=== PATIENT | female | born 1930 | race Caucasian/White ===

== ENCOUNTER 2020-08-03 15:11 | Emergency (ER) | payer OTHER ==
[2020-08-03] MEDS ORDERED: FENTANYL CITR 100 MCG/2 ML ONE (16:17)
[2020-08-03 16:22] LABS: Potassium 4.6 mmol/L (3.5-5.1)
[2020-08-03 16:23] LABS: Absolute Lymphocytes (CBC) 0.9 K/uL (0.7-4.9); Basophils % 0.7 % (0-1.3); Hematocrit 37.7 % (36.0-45.0); Lymphocytes % 9.7 % (15.3-44.8); MPV 7.9 fL (7.6-11.3); RBC Red Blood Cell Count 3.85 M/uL (3.86-4.86)
[2020-08-03] MEDS ORDERED: TRAMADOL HCL 50 MG TAB ONE (16:25)
--- NOTE | 2020-08-03 17:13 | RAD REPORT ---
EXAM DESCRIPTION: CT - Head C Spine Shoaib Fox - 08/03/2020 4:47 pm CLINICAL HISTORY: Trauma, head and neck injury. Chest, abdomen and pelvis pain. fall COMPARISON: None TECHNIQUE: CT head without contrast. CT cervical spine without contrast with coronal and sagittal reformatted images. CT chest, abdomen and pelvis with IV contrast (approximately 100 mL nonionic IV contrast) with paul l and sagittal reformatted images of the spine. All CT scans are performed using dose optimization technique as appropriate and may include automated exposure control or mA/KV adjustment according to patient size. FINDINGS: CT HEAD WITHOUT CONTRAST: No intracranial hemorrhage, hydrocephalus or extra-axial fluid collection. Mild brain atrophy. No are as of brain edema or midline shift. The paranasal sinuses and mastoids are clear. The calvarium is intact. CT CERVICAL SPINE WITHOUT CONTRAST: No fracture or subluxation. Mild lower cervical degenerative changes. The prevertebral soft tissues a re normal in thickness. CT CHEST, ABDOMEN, PELVIS WITH CONTRAST: The lungs are mildly emphysematous.Moderate axial hiatal hernia.No pneumothorax or pericardial/pleura l fluid. No evidence of intra-abdominal visceral injury, free fluid or free air. Prominent sigmoid diverticulo sis coli is present without diverticulitis. Small ventral hernia is present along the lower left aspe ct of the abdomen. Anterior lateral left second rib demonstrates hairline fracture. Mildly displaced left posterior nint h, tenth, eleventh rib fracture. Left tenth, eleventh and twelfth ribs also likely demonstrate fractu re near the costovertebral junction. L1, L2, L3 left transverse process demonstrate minimally displaced fracture. IMPRESSION: Multiple left-sided rib fractures are seen as detailed above without pneumothorax. L1-3 left transverse process fractures. No central canal compromise.
--- NOTE | 2020-08-03 17:57 | ER ---
Nurse's Notes [facility] Name: Emelyn Luu Age: 89 yrs Sex: Female : 1930 Arrival Date: 08/03/2020 Time: 15:15 Bed 27 Private MD: Diagnosis: Fall on same level from slipping, tripping and stumbling;Multiple fractures of ribs, left side Presentation: 08/03 15:26 Chief complaint: Patient states: Missed a step and fell 1 - 2 hrs [employer]. Reports pain on ca1 the L side from L ribs to L hip. Denies LOC. Denies hitting head. Coronavirus screen: Client denies travel out of the [place] in the last 14 days. At this time, the client does not indicate any symptoms associated with coronavirus-19. Ebola Screen: Patient negative for fever greater than or equal to 101.5 degrees Fahrenheit, and additional compatible Ebola Virus Disease symptoms Patient denies exposure to infectious person. Patient denies travel to an Ebola-affected area in the 21 days before illness onset. No symptoms or risks identified at this time. Initial Sepsis Screen: Does the patient meet any 2 criteria? No. Patient's initial sepsis screen is negative. Does the patient have a suspected source of infection? No. Patient's initial sepsis screen is negative. Risk Assessment: Do you want to hurt yourself or someone else? Patient reports no desire to harm self or others. Onset of symptoms was August 03, 2020. 15:26 Method Of Arrival: Wheelchair ca1 15:26 Acuity: KEVIN 2 ca1 15:27 Care prior to arrival: None. Mechanism of Injury: Fall from standing position. Trauma iw event details: Injury occurred in the [facility]. Trauma Activation: Not Applicable Physician: ED Physician; Name: ; Notified At: ; Arrived At: Physician: General Surgeon; Name: ; Notified At: ; Arrived At: Physician: Radiology; Name: ; Notified At: ; Arrived At: Physician: Respiratory; Name: ; Notified At: ; Arrived At: Physician: Lab; Name: ; Notified At: ; Arrived At: Historical: - Allergies: 15:33 unknown pain medication; ca1 - Home Meds: 15:33 Plavix 75 mg Oral tab 1 tab once daily [Active]; Simvastatin Oral [Active]; ca1 - PMHx: 15:33 Diabetes - IDDM; High Cholesterol; Hypertension; ca1 - PSHx: 15:33 back surgery; Hysterectomy; ca1 - Immunization history:: Adult Immunizations up to date. - Social history:: Smoking status: Patient denies any tobacco usage or history of. - Immunization history: Last tetanus immunization: unknown. Screenin:35 Nutritional screening: No deficits noted. Fall Risk None identified. iw 16:15 Abuse screen: Denies threats or abuse. Denies injuries from another. Tuberculosis iw screening: No symptoms or risk factors identified. Primary Survey: 15:26 Reassessment Airway Airway Patent Breathing/Chest Respiratory pattern Regular. iw 16:15 NO uncontrolled hemorrhage observed. A: The patient is alert. Airway: patent. iw Breathing/Chest: Respiratory pattern: regular. Circulation: Skin color: pink. Disability Alert. Exposure/Environment: All clothing and personal items were removed. Forensic evidence collection is not deemed to be indicated at this time. Items placed in patient belonging bag. Secondary Survey: 16:40 HEENT: No deficits noted. Head No injury/deformity Face No injury/deformity. iw Gastrointestinal: Abdomen is soft, flat. : No deficits noted. Musculoskeletal: Range of motion: intact in all extremities, Reports pain in left lateral anterior chest and left lateral posterior chest. Assessment: 16:14 General: Appears in no apparent distress. Behavior is calm, cooperative. Pain: iw Complains of pain in left lateral posterior chest and left lateral anterior chest. Pain: Complains of pain in left hip Neuro: Level of Consciousness is awake, alert, obeys commands, Oriented to person, place, time. Cardiovascular: Patient's skin is warm and dry. Respiratory: Respiratory effort is even, unlabored, Respiratory pattern is regular, symmetrical. Derm: Skin is intact, is fragile. Musculoskeletal: Range of motion: limited in left hip. 18:43 Reassessment: Patient appears in no apparent distress at this time. No changes from iw previously documented assessment. Patient is alert, oriented x 3, equal unlabored respirations, skin warm/dry/pink. waiting on transportation home. Vital Signs: 15:26 BP 175 / 66; Pulse 60; Resp 16 S; Temp 97.6(TE); Pulse Ox 99% on R/A; Weight 63.5 kg ca1 (R); Height 5 ft. 0 in. (152.40 cm) (R); Pain 9/10; 15:26 Body Mass Index 27.34 (63.50 kg, 152.40 cm) ca1 [place] Score: 17:16 Eye Response: spontaneous(4). Verbal Response: oriented(5). Motor Response: obeys iw commands(6). Total: 15. Trauma Score (Adult): 17:16 Eye Response: spontaneous(1); Verbal Response: oriented(1); Motor Response: obeys iw commands(2); Systolic BP: > 89 mm Hg(4); Respiratory Rate: 10 to 29 per min(4); [place] Score: 15; Trauma Score: 12 ED Course: 15:15 Patient arrived in ED. as 15:30 Triage completed. ca1 15:33 Arm band placed on right wrist. ca1 15:35 Patient has correct armband on for positive identification. iw 15:35 Thermoregulation: warm blanket given to patient. iw 15:40 Lourdes Luu RN is Primary Nurse. iw 15:46 Robert Ortiz PA is PHCP. cp 15:46 Robert López MD is Attending Physician. cp 16:15 Initial lab(s) drawn, by me, sent to lab. Inserted saline lock: 20 gauge in right iw antecubital area, using aseptic technique. Blood collected. Patient maintains SpO2 saturation greater than 95% on room air. 16:46 CT Traumagram (Head C Spine CAP W Con) In Process Unspecified. EDMS 18:55 No provider procedures requiring assistance completed. IV discontinued, intact, iw bleeding controlled, No redness/swelling at site. Pressure dressing applied. Administered Medications: 16:14 Not Given (Patient Refused): fentaNYL (PF) 25 mcg IVP once; RASS on ADMIN: Combtv4, iw Very Agttd3, Agttd2, Rstlss1, AlertClm0, Drwsy-1, Lt Sdtn-2, Mod Sdtn-3, Dp Sdtn-4, UnArsble-5 16:36 Drug: UltRAM 50 mg Route: PO; iw Outcome: 17:57 Discharge ordered by MD. cp 18:55 Discharge instructions given to patient, family, Instructed on discharge instructions, iw follow up and referral plans. medication usage, Demonstrated understanding of instructions, follow-up care, medications, Prescriptions given X 1. 18:56 Discharged to home via wheelchair, with family. iw 18:56 Condition: good 18:56 Patient's length of stay was extended due to staffing issues within the emergency department. 18:56 Patient left the ED. iw Signatures: Dispatcher [employer] Flor Brock Irene, RN RN iw Robert Ortiz PA PA cp Acob, Cheryl RN RN ca1
--- NOTE | 2020-08-03 17:57 | EDPHYS ---
Physician Documentation [facility] Name: Emelyn Luu Age: 89 yrs Sex: Female : 1930 Arrival Date: 08/03/2020 Time: 15:15 Bed 27 Private MD: ED Physician Robert López HPI: 08/03 16:00 This 89 yrs old Female presents to ER via Wheelchair with complaints of Fall cp Injury - rib/hip pain. 16:00 Details of fall: The patient fell from an upright position, while walking, and struck a cp concrete surface. 16:00 Onset: The symptoms/episode began/occurred just prior to arrival. Associated injuries: cp The patient sustained injury to the chest, specifically the left lateral posterior chest and left lateral anterior chest, pain with breathing, pain with movement, injury to the abdomen, specifically the posterior aspect of left lateral abdomen and anterior aspect of left lateral abdomen, tenderness, left hip, painful injury. Patient reports losing balance and falling. Landed on left side causing pain to left rib, left abdomen and left hip area. Historical: - Allergies: 15:33 unknown pain medication; ca1 - Home Meds: 15:33 Plavix 75 mg Oral tab 1 tab once daily [Active]; Simvastatin Oral [Active]; ca1 - PMHx: 15:33 Diabetes - IDDM; High Cholesterol; Hypertension; ca1 - PSHx: 15:33 back surgery; Hysterectomy; ca1 - Immunization history:: Adult Immunizations up to date. - Social history:: Smoking status: Patient denies any tobacco usage or history of. - Immunization history: Last tetanus immunization: unknown. ROS: 16:05 Constitutional: Negative for body aches, chills, fever, poor PO intake. cp 16:05 Eyes: Negative for injury, pain, redness, and discharge. cp 16:05 Neck: Negative for pain with movement, pain at rest, stiffness. 16:05 Cardiovascular: Positive for chest pain, of the left lateral rib area, Negative for edema, palpitations. 16:05 Respiratory: Negative for cough, shortness of breath, wheezing. 16:05 Abdomen/GI: Positive for abdominal pain, of the posterior aspect of left lateral abdomen and anterior aspect of left lateral abdomen, Negative for nausea, vomiting, and diarrhea. 16:05 Back: Negative for pain at rest, pain with movement. 16:05 Neuro: Negative for altered mental status, loss of consciousness, syncope, weakness. 16:05 All other systems are negative. Exam: 16:15 Constitutional: The patient appears in no acute distress, alert, awake, cp non-diaphoretic, non-toxic, well developed, well nourished. 16:15 Head/Face: Normocephalic, atraumatic. cp 16:15 Eyes: Periorbital structures: appear normal, Pupils: equal, round, and reactive to light and accomodation, Extraocular movements: intact throughout, Conjunctiva: normal, no exudate, no injection, Sclera: no appreciated abnormality, Lids and lashes: appear normal, bilaterally. 16:15 ENT: External ear(s): are unremarkable, Nose: is normal, Mouth: Lips: moist, Oral mucosa: moist, Posterior pharynx: Airway: no evidence of obstruction, patent. 16:15 Neck: C-spine: vertebral tenderness, is not appreciated, crepitus, is not appreciated. 16:15 Chest/axilla: Inspection: normal, Palpation: crepitus, is not appreciated, tenderness, cp that is moderate, of the left lower lateral posterior chest and left lower lateral anterior chest, that partially reproduces the patient's complaints. 16:15 Cardiovascular: Rate: normal, Rhythm: regular, Edema: is not appreciated, JVD: is not cp appreciated. 16:15 Respiratory: the patient does not display signs of respiratory distress, Respirations: normal, no use of accessory muscles, no retractions, labored breathing, is not present, Breath sounds: are clear throughout, no decreased breath sounds, no stridor, no wheezing. 16:15 Abdomen/GI: Inspection: abdomen appears normal, Bowel sounds: active, all quadrants, Palpation: soft, in all quadrants, mild abdominal tenderness, in the posterior aspect of left lateral abdomen and anterior aspect of left lateral abdomen, rebound tenderness, is not appreciated, involuntary guarding, is not appreciated. 16:15 Back: vertebral tenderness, is not appreciated. 16:15 Musculoskeletal/extremity: Exam is negative for decreased range of motion, deformity, injury, Extremities: all appear grossly normal, with no appreciated pain with palpation. 16:15 Neuro: Orientation: to person, place \T\ time. Mentation: is normal, Motor: moves all fours, strength is normal, Sensation: is normal. Vital Signs: 15:26 BP 175 / 66; Pulse 60; Resp 16 S; Temp 97.6(TE); Pulse Ox 99% on R/A; Weight 63.5 kg ca1 (R); Height 5 ft. 0 in. (152.40 cm) (R); Pain 9/10; 15:26 Body Mass Index 27.34 (63.50 kg, 152.40 cm) ca1 [place] Coma Score: 17:16 Eye Response: spontaneous(4). Verbal Response: oriented(5). Motor Response: obeys iw commands(6). Total: 15. Trauma Score (Adult): 17:16 Eye Response: spontaneous(1); Verbal Response: oriented(1); Motor Response: obeys iw commands(2); Systolic BP: > 89 mm Hg(4); Respiratory Rate: 10 to 29 per min(4); [place] Score: 15; Trauma Score: 12 MDM: 15:49 Patient medically screened. cp 16:00 Differential diagnosis: closed head injury, contusion, fracture, multiple trauma, cp syncope. 17:55 Data reviewed: vital signs, nurses notes, lab test result(s), radiologic studies, CT cp scan. 17:55 Counseling: I had a detailed discussion with the patient and/or guardian regarding: the cp historical points, exam findings, and any diagnostic results supporting the discharge/admit diagnosis, lab results, radiology results, to return to the emergency department if symptoms worsen or persist or if there are any questions or concerns that arise at home. Response to treatment: VSS. Pain improved with meds and no signs of respiratory distress. Incentive spirometry given and will discharge to home for continued monitoring. 08/03 15:47 Order name: Basic Metabolic Panel; Complete Time: 17:30 cp 08/03 17:30 Interpretation: Normal except: GLUC 166; BUN 27; GFR 40. cp 08/03 15:47 Order name: CBC with Diff; Complete Time: 17:30 cp 08/03 15:47 Order name: Type And Screen; Complete Time: 17:30 cp 08/03 15:49 Order name: CT Traumagram (Head C Spine CAP W Con); Complete Time: 17:30 cp 08/03 17:31 Order name: INCENTIVE SPIROMETRY cp 08/03 15:47 Order name: IV; Complete Time: 15:54 cp 08/03 15:47 Order name: Labs collected and sent; Complete Time: 16:14 cp Administered Medications: 16:14 Not Given (Patient Refused): fentaNYL (PF) 25 mcg IVP once; RASS on ADMIN: Combtv4, iw Very Agttd3, Agttd2, Rstlss1, AlertClm0, Drwsy-1, Lt Sdtn-2, Mod Sdtn-3, Dp Sdtn-4, UnArsble-5 16:36 Drug: UltRAM 50 mg Route: PO; iw Disposition: 08/04 01:24 Co-signature as Attending Physician, Robert López MD I agree with the assessment and oumou plan of care. Disposition: 08/03/20 17:57 Discharged to Home. Impression: Fall on same level from slipping, tripping and stumbling, Multiple fractures of ribs, left side. - Condition is Stable. - Discharge Instructions: Rib Fracture. - Prescriptions for Ultram 50 mg Oral Tablet - take 1 tablet by ORAL route every 8 hours As needed; 20 tablet. - Medication Reconciliation Form, Thank You Letter, Antibiotic Education, Prescription Opioid Use form. - Follow up: Private Physician; When: 2 - 3 days; Reason: Recheck today's complaints. - Problem is new. - Symptoms have improved. Signatures: Dispatcher [employer] EDRobert Latif MD MD cha Williams, Irene, RN RN Robert Ortiz PA PA cp Acob, Cheryl, RN RN ca1 Corrections: (The following items were deleted from the chart) 08/03 16:06 16:06 This 89 yrs old Female presents to ER via Wheelchair with complaints of cp Fall Injury - rib/hip pain. cp 18:56 17:57 08/03/2020 17:57 Discharged to Home. Impression: Fall on same level from iw slipping, tripping and stumbling; Multiple fractures of ribs, left side. Condition is Stable. Forms are Medication Reconciliation Form, Thank You Letter, Antibiotic Education, Prescription Opioid Use. Follow up: Private Physician; When: 2 - 3 days; Reason: Recheck today's complaints. Problem is new. Symptoms have improved. cp
[2020-08-03 19:24] VITALS: BP 175/66; TEMP 97.6; O2SAT 99
== END 2020-08-03 18:56 | disposition home or self-care (01) ==
LOC: ER 15:11
DX: S22.42XA Multiple fractures of ribs, left side, initial encounter for closed fracture (principal); W18.39XA Other fall on same level, initial encounter; Y93.01 Activity, walking, marching and hiking; Y92.9 Unspecified place or not applicable; I10 Essential (primary) hypertension; E11.9 Type 2 diabetes mellitus without complications; E78.00 Pure hypercholesterolemia, unspecified; Z79.01 Long term (current) use of anticoagulants; Z88.6 Allergy status to analgesic agent
CPT/HCPCS: 85025; 80048; 36415; 86900; 86850; 86901; 70450; 72125; 71260; 74177; 99284; Q9967; J3010

== ENCOUNTER 2020-10-26 11:20 | Inpatient (IN) | payer OTHER ==
[2020-10-26 12:46] LABS: Absolute Lymphocytes (CBC) 0.4 K/uL (0.7-4.9); Basophils % 0.6 % (0-1.3); Hematocrit 34.5 % (36.0-45.0); Lymphocytes % 8.8 % (15.3-44.8); MPV 8.1 fL (7.6-11.3); RBC Red Blood Cell Count 3.44 M/uL (3.86-4.86)
--- NOTE | 2020-10-26 12:59 | RAD REPORT ---
EXAM DESCRIPTION: RAD - Chest Single View - 10/26/2020 12:18 pm CLINICAL HISTORY: Cough;Dyspnea;Fever COMPARISON: None TECHNIQUE: AP portable chest image was obtained 10/26/2020 12:18 pm . FINDINGS: Lung volumes are low. Extensive interstitial opacification is present worse at the right b ase and in the right upper lobe. No dense mass or consolidations seen. Baseline for the patient is un known. Heart size is normal. Vasculature is mildly prominent. No pneumothorax. Small right pleural effusion is suspected. No acute bony abnormality seen. No acute aortic findings suspected. IMPRESSION: Extensive interstitial opacification worse in the right lung field with shallow inspirat ion. Baseline for the patient is unknown. Mild to moderate degrees of interstitial edema or infiltrate cou ld easily be acute head masked by a baseline fibrotic pattern.
[2020-10-26] MEDS ORDERED: NA CHLORIDE 0.9% 500 ML ONE (13:15)
[2020-10-26 13:16] LABS: Potassium 3.8 mmol/L (3.5-5.1); Troponin (Emerg Dept Use Only) 0.03 ng/mL (0.0-0.045)
[2020-10-26] MEDS ORDERED: CEFTRIAXONE/SWI 1gm 1 GM/10 ML SYR ONE (13:50)
[2020-10-26] MEDS ORDERED: AZITHROMYCIN IV 500 MG in NA CHLORIDE 0.9% 250 ML IVPB ONE (14:00)
[2020-10-26 15:04] LABS: Urine Blood 2+ (Negative); Urine Glucose Negative (Negative); Urine Protein Trace (Negative)
--- NOTE | 2020-10-26 15:08 | ER ---
Nurse's Notes [facility] [place] Name: Emelyn Luu Age: 89 yrs Sex: Female : 1930 Arrival Date: 10/26/2020 Time: 11:50 Bed 19 Private MD: Diagnosis: Pneumonia, unspecified organism;Urinary tract infection, site not specified Presentation: 10/26 11:51 Chief complaint: Patient states: Weakness, cough, fever, SOB since Wednesday. Fever ll1 started today. Chief complaint: EMS states: Initial O2 sat 83% RA, temp 99.5, BP 197/88, HR 60. Given 700 ml NS bolus in route. Tylenol 1 gm PO and nebulizer TX given in route. Coronavirus screen: Client denies travel out of the [place] in the last 14 days. congestion, cough unrelated to allergies, difficulty breathing, fever, shortness of breath, Client presents with at least one sign or symptom that may indicate coronavirus-19. Standard/surgical mask placed on the client. Ebola Screen: Patient denies travel to an Ebola-affected area in the 21 days before illness onset. Risk Assessment: Do you want to hurt yourself or someone else? Patient reports no desire to harm self or others. Onset of symptoms was October 21, 2020. 11:51 Method Of Arrival: EMS ll1 11:51 Acuity: KEVIN 3 ll1 12:00 Initial Sepsis Screen: Does the patient meet any 2 criteria? No. Patient's initial rb3 sepsis screen is negative. Does the patient have a suspected source of infection? Yes: Productive cough/pneumonia. Triage Assessment: 11:55 Pain: Denies pain. rb3 Historical: - Allergies: 11:51 unknown pain medication; ll1 - PMHx: 11:51 Diabetes - IDDM; High Cholesterol; Hypertension; ll1 - PSHx: 11:51 back surgery; Hysterectomy; ll1 - Immunization history:: Client reports receiving the 2nd dose of the Covid vaccine, Flu vaccine is up to date. - Social history:: Smoking status: Patient denies any tobacco usage or history of. - Family history:: not pertinent. - Hospitalizations: : No recent hospitalization is reported. Screenin:55 Abuse screen: Denies threats or abuse. Nutritional screening: No deficits noted. rb3 Tuberculosis screening: No symptoms or risk factors identified. Fall Risk None identified. Assessment: 11:55 General: Appears in no apparent distress. Behavior is calm, cooperative, Reports fever rb3 for started today. Neuro: Level of Consciousness is awake, alert, obeys commands, Oriented to person, place, time, situation. Neuro: Reports weakness since Wednesday. Cardiovascular: Patient's skin is warm and dry. Respiratory: Reports shortness of breath cough that is Airway is patent Respiratory effort is even, unlabored, Respiratory pattern is regular, symmetrical. GI: No signs and/or symptoms were reported involving the gastrointestinal system. : No signs and/or symptoms were reported regarding the genitourinary system. 12:55 Reassessment: Patient appears in no apparent distress at this time. No changes from rb3 previously documented assessment. 13:44 Reassessment: Patient appears in no apparent distress at this time. Patient and/or rb3 family updated on plan of care and expected duration. Pain level reassessed. Patient is alert, oriented x 3, equal unlabored respirations, skin warm/dry/pink. 14:40 Reassessment: Patient appears in no apparent distress at this time. No changes from rb3 previously documented assessment. 15:40 Reassessment: Patient appears in no apparent distress at this time. Patient and/or rb3 family updated on plan of care and expected duration. Pain level reassessed. Patient is alert, oriented x 3, equal unlabored respirations, skin warm/dry/pink. Patient denies pain at this time. 16:35 Reassessment: Gave report to LEROY Shook. Information from the SBAR was given. All rb3 questions asked and answered. 16:39 Reassessment: Patient appears in no apparent distress at this time. No changes from rb3 previously documented assessment. 17:00 Reassessment: Patient appears in no apparent distress at this time. Patient and/or rb3 family updated on plan of care and expected duration. Pain level reassessed. Patient is alert, oriented x 3, equal unlabored respirations, skin warm/dry/pink. Patient denies pain at this time. Vital Signs: 11:51 Weight 65.77 kg; Height 5 ft. 0 in. (152.40 cm); ll1 12:00 BP 148 / 71; Pulse 78; Resp 19; Temp 99.4; Pulse Ox 95% on 4 lpm NC; rb3 12:30 BP 132 / 51; Pulse 99; Resp 24; Temp 99.4(O); Pulse Ox 85% on R/A; mh5 12:55 BP 170 / 85; Pulse 70; Resp 19; Pulse Ox 97% on 4 lpm NC; mh5 14:00 BP 157 / 57; Pulse 83; Resp 24; Pulse Ox 95% on 4 lpm NC; rb3 15:00 BP 140 / 65; Pulse 74; Resp 21; Pulse Ox 94% 4 lpm ; Pain 0/10; rb3 16:00 BP 164 / 82; Pulse 71; Resp 20; Pulse Ox 95% on 4 lpm NC; rb3 16:40 BP 149 / 64; Pulse 71; Resp 20; Temp 98.2; Pulse Ox 95% 4 lpm ; rb3 11:51 Body Mass Index 28.32 (65.77 kg, 152.40 cm) ll1 ED Course: 11:50 Patient arrived in ED. rn 11:50 Casey Li MD is Attending Physician. rn 11:50 Arm band placed on Patient placed in an exam room, on a stretcher. ll1 11:53 Triage completed. ll1 12:18 Chest Single View XRAY In Process Unspecified. EDMS 12:45 Initial lab(s) drawn, by me, sent to lab. First set of blood cultures drawn by me [facility] Second set of blood cultures drawn by ok, EKG done, by ED staff, reviewed by Casey Li MD COVID swab sent to lab. Flu and/or RSV swab sent to lab. Maintain EMS IV. Dressing intact. Good blood return noted. Site clean \T\ dry. 13:09 Blood Culture Sent. 5 13:09 Basic Metabolic Panel Sent. 5 13:10 Basic Metabolic Panel Sent. 5 13:10 Blood Culture Adult (2) Sent. 5 13:10 Lactate Sent. 5 13:10 Procalcitonin Sent. 5 13:11 Shannan Quintero, RN is Primary Nurse. rb3 13:11 Patient has correct armband on for positive identification. Placed in gown. Bed in low mh5 position. Call light in reach. Side rails up X2. Pillow given. library monitor on. Pulse ox on. NIBP on. 13:11 Troponin (emerg Dept Use Only) Sent. 5 15:08 Oz Lugo MD is Hospitalizing Provider. rn 17:09 No provider procedures requiring assistance completed. Patient admitted, IV remains in rb3 place. Administered Medications: 12:57 Drug: NS 0.9% 500 ml Route: IV; Rate: bolus; Site: right antecubital; aa5 13:33 Follow up: IV Status: Completed infusion rb3 13:30 Drug: Rocephin (cefTRIAXone) 1 grams Route: IV; Rate: calculated rate; Site: right rb3 antecubital; 13:45 Follow up: Response: No adverse reaction; IV Status: Completed infusion rb3 14:00 Drug: Zithromax (azithromycin) 500 mg Route: IVPB; Infused Over: 1 hrs; Site: right rb3 antecubital; 15:00 Follow up: IV Status: Completed infusion rb3 Outcome: 15:08 Decision to Hospitalize by Provider. rn 17:09 Admitted to Tele accompanied by tech, via stretcher, room 408, with oxygen, with chart, rb3 Report called to LEROY Shook 17:09 Condition: stable 17:09 Instructed on the need for admit. 17:12 Patient left the ED. rb3 Signatures: Dispatcher [employer] EDMS Casey Li MD MD rn Calderon, Audri, RN RN aa5 Stacey Raza 5 Mario Hampton, LEROY RN ll1 Shannan Quintero, LEROY RN rb3 Corrections: (The following items were deleted from the chart) 13:17 12:55 BP 170 / 85; Pulse 70bpm; Resp 19bpm; Pulse Ox 97%; rb3 mh5 14:27 13:10 CORONAVIRUS+MR.LAB.BRZ drawn and sent. 5 EDMS 14:28 13:09 Influenza Screen (A \T\ B)+BA.LAB.BRZ drawn and sent. 5 EDMS
--- NOTE | 2020-10-26 15:08 | EDPHYS ---
Physician Documentation [facility] Name: Emelyn Luu Age: 89 yrs Sex: Female : 1930 Arrival Date: 10/26/2020 Time: 11:50 Bed 19 Private MD: ED Physician Casey Li HPI: 10/26 11:57 This 89 yrs old Female presents to ER via EMS with complaints of cough, sob. rn 11:57 The patient or guardian reports cough, difficulty breathing. Onset: The rn symptoms/episode began/occurred 1 week(s) ago. Severity of symptoms: At their worst the symptoms were mild, in the emergency department the symptoms are unchanged. Modifying factors: The symptoms are alleviated by nothing, the symptoms are aggravated by nothing. Associated signs and symptoms: Pertinent positives: fever, Pertinent negatives: chest pain, rhinorrhea, sore throat, vomiting. The patient has not experienced similar symptoms in the past. The patient has not recently seen a physician. Reports 1 week of cough and sob, worsening, fever today. At recently last week. COVID vaccinated. . EMS reports 82-84% on RA.. Historical: - Allergies: 11:51 unknown pain medication; ll1 - PMHx: 11:51 Diabetes - IDDM; High Cholesterol; Hypertension; ll1 - PSHx: 11:51 back surgery; Hysterectomy; ll1 - Immunization history:: Client reports receiving the 2nd dose of the Covid vaccine, Flu vaccine is up to date. - Social history:: Smoking status: Patient denies any tobacco usage or history of. - Family history:: not pertinent. - Hospitalizations: : No recent hospitalization is reported. ROS: 11:57 Constitutional: + fever Eyes: Negative for injury, pain, redness, and discharge, Neck: rn Negative for injury, pain, and swelling, Cardiovascular: Negative for chest pain, palpitations, and edema, Respiratory: + sob and cough Abdomen/GI: Negative for abdominal pain, nausea, vomiting, diarrhea, and constipation, Back: Negative for injury and pain, : Negative for injury, bleeding, discharge, and swelling, MS/Extremity: Negative for injury and deformity, Skin: Negative for injury, rash, and discoloration, Neuro: Negative for headache, numbness, tingling, and seizure. Exam: 11:57 Constitutional: This is a well developed, well nourished patient who is awake, alert, rn and in no acute distress. Head/Face: Normocephalic, atraumatic. Cardiovascular: Regular rate and rhythm. No pulse deficits. Respiratory: + mild tachypnea, faint wheezing upper lungs, no retractions Abdomen/GI: soft, non-tender Skin: Warm, dry with normal turgor. Normal color with no rashes, no lesions, and no evidence of cellulitis. Vital Signs: 11:51 Weight 65.77 kg; Height 5 ft. 0 in. (152.40 cm); ll1 12:00 BP 148 / 71; Pulse 78; Resp 19; Temp 99.4; Pulse Ox 95% on 4 lpm NC; rb3 12:30 BP 132 / 51; Pulse 99; Resp 24; Temp 99.4(O); Pulse Ox 85% on R/A; mh5 12:55 BP 170 / 85; Pulse 70; Resp 19; Pulse Ox 97% on 4 lpm NC; mh5 14:00 BP 157 / 57; Pulse 83; Resp 24; Pulse Ox 95% on 4 lpm NC; rb3 15:00 BP 140 / 65; Pulse 74; Resp 21; Pulse Ox 94% 4 lpm ; Pain 0/10; rb3 16:00 BP 164 / 82; Pulse 71; Resp 20; Pulse Ox 95% on 4 lpm NC; rb3 16:40 BP 149 / 64; Pulse 71; Resp 20; Temp 98.2; Pulse Ox 95% 4 lpm ; rb3 11:51 Body Mass Index 28.32 (65.77 kg, 152.40 cm) ll1 MDM: 11:50 Patient medically screened. rn 14:31 Differential Diagnosis: Bronchitis Influenza Upper Respiratory Infection Viral Syndrome rn Pneumonia. 15:07 Data reviewed: vital signs, nurses notes, lab test result(s), radiologic studies, plain rn films, and as a result, I will admit patient. Counseling: I had a detailed discussion with the patient and/or guardian regarding: the historical points, exam findings, and any diagnostic results supporting the discharge/admit diagnosis, lab results, radiology results, the need for further work-up and treatment in the hospital. Response to treatment: the patient's symptoms have mildly improved after treatment, and as a result, I will admit patient. Admission orders: after a detailed discussion of the patient's condition and case, the admit orders are written by me. 10/26 11:53 Order name: Basic Metabolic Panel rn 10/26 11:53 Order name: Blood Culture Adult (2) rn 10/26 11:53 Order name: CBC with Diff rn 10/26 11:53 Order name: Lactate rn 10/26 11:53 Order name: Procalcitonin; Complete Time: 14:21 rn 10/26 11:53 Order name: Troponin (emerg Dept Use Only); Complete Time: 13:37 rn 10/26 11:53 Order name: Urine Microscopic Only rn 10/26 11:53 Order name: Basic Metabolic Panel; Complete Time: 13:37 EDHI 10/26 11:53 Order name: Blood Culture EDHI 10/26 11:53 Order name: CBC with Automated Diff; Complete Time: 13:16 EDHI 10/26 11:53 Order name: Lactate; Complete Time: 13:16 EDHI 10/26 15:04 Order name: Urine Dipstick-Ancillary; Complete Time: 15:07 EDHI 10/26 11:53 Order name: Chest Single View XRAY; Complete Time: 13:16 12 11:53 Order name: Accucheck; Complete Time: 13:10 10/26 11:53 Order name: Cardiac monitoring; Complete Time: 13:10 10/26 11:53 Order name: EKG - Nurse/Tech; Complete Time: 13:10 12 11:53 Order name: IV Saline Lock - Large Bore; Complete Time: 13:10 12 11:53 Order name: Labs collected and sent; Complete Time: 13:10 12 11:53 Order name: O2 Per Protocol; Complete Time: 13:10 12 11:53 Order name: O2 Sat Monitoring; Complete Time: 13:10 12 11:53 Order name: Urine Dipstick-Ancillary (obtain specimen); Complete Time: 17:12 10/26 15:23 Order name: COVID-19/FLU A+B EDHI 10/26 15:28 Order name: Urine Culture [facility] 10/26 15:38 Order name: Diet Ada 1800 Sohan; Complete Time: 15:39 aa5 Administered Medications: 12:57 Drug: NS 0.9% 500 ml Route: IV; Rate: bolus; Site: right antecubital; aa5 13:33 Follow up: IV Status: Completed infusion rb3 13:30 Drug: Rocephin (cefTRIAXone) 1 grams Route: IV; Rate: calculated rate; Site: right rb3 antecubital; 13:45 Follow up: Response: No adverse reaction; IV Status: Completed infusion rb3 14:00 Drug: Zithromax (azithromycin) 500 mg Route: IVPB; Infused Over: 1 hrs; Site: right rb3 antecubital; 15:00 Follow up: IV Status: Completed infusion rb3 Disposition: 10/26/20 15:08 Hospitalization ordered by Oz Lugo for Inpatient Admission. Preliminary diagnosis are Pneumonia, unspecified organism, Urinary tract infection, site not specified. - Bed requested for Telemetry/MedSurg (Inpatient). - Status is Inpatient Admission. rb3 - Condition is Stable. - Problem is new. - Symptoms have improved. Signatures: Dispatcher [employer] EDMS Casey Li MD MD rn Calderon, Audri RN RN aa5 Elva Hodgson Lynsay RN RN ll1 Shannan Quintero RN RN rb3 Corrections: (The following items were deleted from the chart) 14:27 11:53 CORONAVIRUS+MR.LAB.BRZ ordered. EDHI EDMS 14:28 11:53 Influenza Screen (A \T\ B)+BA.LAB.BRZ ordered. EDHI EDMS 16:11 15:08 Hospitalization Ordered by A Brittney CORTES for Inpatient Admission. Preliminary eb diagnosis is Pneumonia, unspecified organism; Urinary tract infection, site not specified. Bed requested for Telemetry/MedSurg (Inpatient). Status is Inpatient Admission. Condition is Stable. Problem is new. Symptoms have improved. rn 17:12 16:11 10/26/2020 15:08 Hospitalization Ordered by A Brittney CORTES for Inpatient Admission. rb3 Preliminary diagnosis is Pneumonia, unspecified organism; Urinary tract infection, site not specified. Bed requested for Telemetry/MedSurg (Inpatient). Status is Inpatient Admission. Condition is Stable. Problem is new. Symptoms have improved. eb
[2020-10-26 15:23] LABS: SARS-COV-2 RT PCR NEGATIVE (NEGATIVE)
[2020-10-26 15:27] LABS: Urine Amorphous Sediment 1+ /HPF (NONE SEEN); Urine Bacteria >50 /HPF (<20); Urine RBC <5 /HPF (NONE SEEN)
[2020-10-26] MEDS ORDERED: ONDANSETRON 4 MG/2 ML VIAL IV PRN (17:42)
[2020-10-26] MEDS ORDERED: D50W 25 GM/50 ML SYRINGE IV PRN (17:42)
[2020-10-26] MEDS ORDERED: GLUCAGON 1 MG/VIAL IM PRN (17:42)
[2020-10-26] MEDS: carvediloL 3.125 MG TAB PO SCH (17:53)
[2020-10-26] MEDS: ACETAMINOPHEN 500 MG TAB PO PRN ×2 (17:53→23:14)
[2020-10-26] MEDS: IPRATROPIUM BROM 0.5MG/2.5ML NEB PRN ×2 (17:55→23:20)
[2020-10-26] MEDS: ALBUTEROL 2.5 MG/3 ML NEB SOL NEB PRN ×2 (17:55→23:20)
[2020-10-26] MEDS: GABAPENTIN 100 MG CAP PO SCH (20:18)
[2020-10-26] MEDS: ATORVASTATIN 20 MG TAB PO SCH (20:18)
[2020-10-26] MEDS: lisinopriL 10 MG TAB PO SCH (20:18)
[2020-10-26] MEDS ORDERED: CEFTRIAXONE 1 GM/NS 50 ML 1 GM/50 ML BAG IV SCH (21:00)
[2020-10-26] MEDS: INSULIN -REGULAR HUMAN 50 UNIT/0.5 ML ML SQ SCH (21:00)
[2020-10-26] MEDS ORDERED: CEFTRIAXONE/SWI 1gm 1 GM/10 ML SYR IV SCH (21:00)
[2020-10-27] MEDS ORDERED: FUROSEMIDE 20 MG/ 2ML VIAL IV ONE (00:18)
[2020-10-27] MEDS: NITROGLYCERIN 1 GM PKT TD SCH ×5 (00:55→23:39)
[2020-10-27] MEDS: PIPER/TAZO/NS 2.25gm 2.25 GM/50 ML BAG IVPB SCH ×5 (01:00→23:38)
[2020-10-27] MEDS ORDERED: PIPERACIL/TAZO 2.25 GM VIAL IV ONE (01:30)
[2020-10-27] MEDS ORDERED: NA CHLORIDE 0.9% 50 ML ONE (01:50)
[2020-10-27] MEDS ORDERED: PIPER/TAZO/NS 2.25gm 2.25 GM/50 ML BAG ONE (03:46)
[2020-10-27 06:18] LABS: Absolute Lymphocytes (CBC) 0.5 K/uL (0.7-4.9); Basophils % 0.5 % (0-1.3); Lymphocytes % 9.3 % (15.3-44.8); MPV 8.3 fL (7.6-11.3); RBC Red Blood Cell Count 3.49 M/uL (3.86-4.86)
[2020-10-27] MEDS: ALBUTEROL 2.5 MG/3 ML NEB SOL NEB PRN ×2 (06:20→14:09)
[2020-10-27] MEDS: IPRATROPIUM BROM 0.5MG/2.5ML NEB PRN ×2 (06:20→14:09)
[2020-10-27 06:31] LABS: Potassium 3.9 mmol/L (3.5-5.1)
[2020-10-27] MEDS: ACETAMINOPHEN 500 MG TAB PO PRN ×3 (06:32→20:14)
[2020-10-27] MEDS: LEVOTHYROXINE SOD 0.05 MG TABLET PO SCH (06:32)
[2020-10-27] MEDS: lisinopriL 10 MG TAB PO SCH ×3 (09:00→22:07)
[2020-10-27] MEDS: INSULIN -REGULAR HUMAN 50 UNIT/0.5 ML ML SQ SCH ×4 (09:10→20:16)
[2020-10-27] MEDS: hydroCHLOROthiazide 12.5 MG CAP PO SCH (09:11)
[2020-10-27] MEDS: FUROSEMIDE 20 MG/ 2ML VIAL IV SCH ×2 (09:11→17:08)
[2020-10-27] MEDS: ASPIRIN EC 81 MG TAB PO SCH (09:11)
[2020-10-27] MEDS: GABAPENTIN 100 MG CAP PO SCH ×3 (09:11→20:14)
[2020-10-27] MEDS: CLOPIDOGREL 75 MG TABLET PO SCH (09:12)
[2020-10-27] MEDS: carvediloL 3.125 MG TAB PO SCH (09:12)
[2020-10-27] MEDS: TAMSULOSIN 0.4 MG SR CAP PO SCH (09:13)
[2020-10-27] MEDS: ENOXAPARIN 30 MG/0.3 ML SQ SCH (09:13)
[2020-10-27] MEDS: POTASSIUM CL SA 10 MEQ TAB PO SCH ×2 (09:17→20:14)
[2020-10-27] MEDS: AZITHROMYCIN IV 250 MG in NA CHLORIDE 0.9% 250 ML IVPB SCH (09:17)
[2020-10-27 18:42] LABS: Magnesium 1.9 mg/dL (1.8-2.4); Potassium 3.5 mmol/L (3.5-5.1)
[2020-10-27] MEDS: ATORVASTATIN 20 MG TAB PO SCH (20:15)
--- NOTE | 2020-10-27 21:16 | HP ---
Date of Admission: 10/26/2020 Chief Complaint: Cough and shortness of breath. History Of Present Illness: This is an 89-year-old very pleasant female patient, who went for her si [employer] out of town and this was a road trip. She came back to town on Wednesday of this week. The patient states that while she was out of town, she started to have this cough and shortness of br eath, and has been coughing up some clear mucus. No fever. No chills. Her cough and shortness of b reath symptoms have progressively gotten worse to the extent that yesterday she ended up in the emerg ency room and after she was evaluated, she was admitted to the hospital. Yesterday evening, the nikita ent's breathing was worse, she was having lot of wheezing, and we started her on IV Lasix and nitrogl ycerin paste was ordered as her blood pressure was elevated and this morning when I saw her, she repo rted that she was feeling better this morning compared to yesterday evening. Allergies: SULFA CAUSING NAUSEA. Medications: Fosamax 35 mg once a week, aspirin 81 mg daily, carvedilol 3.125 mg 2 times a day, Plav ix 75 mg daily, Ferrocite 1 tablet by mouth daily, gabapentin 100 mg by mouth 3 times a day, lisinopr il/HCTZ 20/12.5 one tablet by mouth 2 times a day, NovoLog mix 70/30 insulin she takes 15 to 25 units 2 times a day, levothyroxine 50 mcg daily, simvastatin 40 mg daily, tamsulosin 0.4 mg daily. Review of Systems: Respiratory: As mentioned above. Cardiovascular: As mentioned above. All other systems reviewed and negative. Past Medical History: Significant for diabetes mellitus type 2 with diabetic peripheral neuropathy, hypothyroidism, hypertension, hyperlipidemia, coronary artery disease, diverticulosis, chronic kidney disease, osteoarthritis at multiple sites, anemia due to chronic kidney disease, osteoporosis. Past Surgical History: Coronary artery angioplasty with stent placement in 2006 and hysterectomy. Family History: Father had some unknown type of cancer. Social History: Negative for smoking or alcohol use. Immunization History: The patient had Drake and Drake vaccine on July 25, 2020. Physical Examination: Vital Signs: Last vital signs this morning before I saw her, temperature 98.4, pulse 77, respiratory rate 18, blood pressure 117/55, oxygen saturation 95%. Height 5 feet, weight 145 pounds. General: Awake, alert, oriented, not in distress. HEENT: Head atraumatic, normocephalic. Conjunctivae nonerythematous. Sclerae white. Mouth, no thr ush or edema noted. Ears/Nose, no mass, lesion, discharge noted. Neck: Supple. No JVD, lymph nodes, bruit, thyromegaly noted. Lungs: The patient has crackles present in both lung beard, diffusely scattered in both lung beard . Not using any accessory muscles of respirations. Heart: Presence of systolic murmur. No gallop. When I was examining her, for few seconds she was n oted to have a very rapid heartbeat and subsequently her heart rate came down to normal. During this time, she was not on diabetes trainer and after I saw her, she was placed on diabetes trainer. Abdomen: Soft. Bowel sounds normal. No guarding, rigidity, tenderness, mass, hepatosplenomegaly, d istention, or bruit noted. Extremities: No leg edema. No calf tenderness. Skin: No rash, ulcer, cellulitis. Lymphatics: No lymph node enlargement in neck, supraclavicular, infraclavicular region. Neuro: No focal neurological deficit. Chest: Unremarkable. External Genitalia: Deferred. Rectal: Deferred. Laboratory Data: Sodium 139, potassium 3.8, chloride 106, bicarb 25, BUN 35, creatinine 1.25, glucos e 134. Troponin 0.03. Procalcitonin less than 0.05. This morning, sodium 137, potassium 3.9, chlor kristina 102, bicarb 28, BUN 27, creatinine 1.36, glucose 205. ProBNP 4682 this morning. Yesterday, whit e count 4.6, hemoglobin 11.2, platelets 169. Today, white count 5.1, hemoglobin 11.5, platelets 167. Urinalysis positive for nitrite, trace leukocyte esterase, 5-10 WBC, bacteria more than 50. COVID- 19 test negative. Influenza A and B test negative. Chest x-ray shows extensive interstitial opacifi cation, worse in the right lung than the left lung. Impression: 1.Congestive heart failure. 2.Urinary tract infection. 3.Anemia due to chronic kidney disease. 4.Chronic kidney disease stage 3B. 5.Hypertension. 6.Coronary artery disease. 7.Hyperlipidemia. 8.Diabetes mellitus with chronic kidney disease. Plan: Admit the patient to hospital for further evaluation and management of this problem. The nikita ent is appropriate for inpatient and is expected to spend 2 midnights in hospital. Her home medicati ons will be continued per order. We will go ahead and continue her empiric antibiotic, which was sta rted in emergency room that includes azithromycin and last night when nurse contacted me, ceftriaxone was discontinued and Zosyn was started. I also started her on IV Lasix 20 mg 2 times a day, which w e will continue that. We will use Lovenox for DVT prophylaxis 30 mg subcutaneous injection daily. A n echo with Doppler was ordered, which should be done tomorrow. We will follow up on urine culture r esults and then make decision regarding final choice of antibiotics. We will follow daily weight, in take and output monitoring, and details and plan of treatment discussed with her. BRIGHT/MODPinky Voice ID: [id number]
[2020-10-27] MEDS: METOPROLOL XL 25 MG TAB PO SCH (22:07)
[2020-10-28 04:58] LABS: Absolute Lymphocytes (CBC) 0.8 K/uL (0.7-4.9); Basophils % 0.9 % (0-1.3); Hematocrit 33.9 % (36.0-45.0); Lymphocytes % 18.8 % (15.3-44.8); MPV 8.1 fL (7.6-11.3)
[2020-10-28 05:32] LABS: Albumin 2.9 g/dL (3.4-5.0); Bilirubin Total 0.5 mg/dL (0.2-1.0); Potassium 3.5 mmol/L (3.5-5.1); Protein, Total 6.9 g/dL (6.4-8.2); Thyroid Stimulating Hormone 3.28 uIU/mL (0.360-3.740)
[2020-10-28] MEDS: NITROGLYCERIN 1 GM PKT TD SCH ×3 (05:47→17:02)
[2020-10-28] MEDS: LEVOTHYROXINE SOD 0.05 MG TABLET PO SCH (05:47)
[2020-10-28] MEDS: PIPER/TAZO/NS 2.25gm 2.25 GM/50 ML BAG IVPB SCH ×3 (05:49→17:02)
[2020-10-28] MEDS: INSULIN -REGULAR HUMAN 50 UNIT/0.5 ML ML SQ SCH ×4 (07:30→21:28)
[2020-10-28] MEDS: ENOXAPARIN 30 MG/0.3 ML SQ SCH (08:32)
[2020-10-28] MEDS: AZITHROMYCIN IV 250 MG in NA CHLORIDE 0.9% 250 ML IVPB SCH ×2 (08:32→08:35)
[2020-10-28] MEDS: FUROSEMIDE 20 MG/ 2ML VIAL IV SCH ×2 (08:33→17:03)
[2020-10-28] MEDS: POTASSIUM CL SA 10 MEQ TAB PO SCH ×2 (08:34→21:23)
[2020-10-28] MEDS: GABAPENTIN 100 MG CAP PO SCH ×3 (08:35→21:20)
[2020-10-28] MEDS: lisinopriL 10 MG TAB PO SCH ×2 (08:35→21:21)
[2020-10-28] MEDS: hydroCHLOROthiazide 12.5 MG CAP PO SCH (08:35)
[2020-10-28] MEDS: ASPIRIN EC 81 MG TAB PO SCH (08:35)
[2020-10-28] MEDS: CLOPIDOGREL 75 MG TABLET PO SCH (08:36)
[2020-10-28] MEDS: TAMSULOSIN 0.4 MG SR CAP PO SCH (08:36)
[2020-10-28] MEDS ORDERED: POTASSIUM CL SA 10 MEQ TAB PO ONE (09:00)
--- NOTE | 2020-10-28 10:46 | RAD REPORT ---
EXAM DESCRIPTION: RAD - Chest Pa And Lat (2 Views) - 10/28/2020 10:35 am CLINICAL HISTORY: CHF Chest pain. COMPARISON: Chest Single View dated 10/26/2020 FINDINGS: Mild improvement is noted in pulmonary edema pattern since comparative study. The heart is mildly enlarged in size. Small hiatal hernia. IMPRESSION: Mild improvement in CHF/ volume overload pattern since comparative study.
[2020-10-28] MEDS: ACETAMINOPHEN 500 MG TAB PO PRN (12:36)
[2020-10-28 15:47] VITALS: BMI 28.2
[2020-10-28] MEDS: ATORVASTATIN 20 MG TAB PO SCH (21:21)
[2020-10-28] MEDS: METOPROLOL XL 25 MG TAB PO SCH (21:22)
--- NOTE | 2020-10-28 21:41 | PN ---
Date of Progress Note: 10/28/2020 Subjective: The patient was seen this morning for followup. She denied any new complaints. Reporte d that she slept very well last night. No shortness of breath during nighttime. Overall, she feels better. Her cough is better. Objective: Vital Signs: Reviewed. HEENT: Unremarkable. Lungs: Bilateral good equal air entry. Presence of rales in both lung beard, but overall better to day than yesterday. Not using any accessory muscles of respiration. Heart: Sounds normal. Abdomen: Soft. Bowel sounds normal. No guarding, rigidity, tenderness, or distention. Extremities: No leg edema. Laboratory Data: White count 4.2, hemoglobin 11.3, platelets 162. Sodium 140, potassium 3.5, chlori de 103, bicarb 30, BUN 40, creatinine 1.65, glucose 142. Liver function tests unremarkable. ProBNP 2083. TSH 3.2. Chest x-ray shows improvement in pattern of congestive heart failure. Impression: 1.Congestive heart failure. 2.Hypertension. 3.Diabetes mellitus. 4.Anemia due to chronic kidney disease. Plan: We will continue current medications. Continue current IV Lasix. Echo with Doppler will be d one today. We will continue other current antihypertensive medication and diabetes management. I will repeat blood work tomorrow. I w ill see her tomorrow for followup. BRIGHT/MODL Voice ID: [id number] Report ID: [id number]
[2020-10-29] MEDS: NITROGLYCERIN 1 GM PKT TD SCH ×4 (00:47→17:26)
[2020-10-29] MEDS: PIPER/TAZO/NS 2.25gm 2.25 GM/50 ML BAG IVPB SCH ×4 (00:48→17:26)
[2020-10-29 04:01] LABS: Absolute Lymphocytes (CBC) 0.9 K/uL (0.7-4.9); Basophils % 1.1 % (0-1.3); Hematocrit 29.8 % (36.0-45.0); MPV 7.9 fL (7.6-11.3); RBC Red Blood Cell Count 3.04 M/uL (3.86-4.86)
[2020-10-29 04:11] LABS: Magnesium 1.9 mg/dL (1.8-2.4); Potassium 3.8 mmol/L (3.5-5.1)
[2020-10-29] MEDS: LEVOTHYROXINE SOD 0.05 MG TABLET PO SCH (06:25)
[2020-10-29] MEDS: ACETAMINOPHEN 500 MG TAB PO PRN ×2 (06:30→21:39)
[2020-10-29] MEDS: INSULIN -REGULAR HUMAN 50 UNIT/0.5 ML ML SQ SCH ×4 (07:30→20:48)
[2020-10-29] MEDS: ASPIRIN EC 81 MG TAB PO SCH (08:31)
[2020-10-29] MEDS: CLOPIDOGREL 75 MG TABLET PO SCH (08:32)
[2020-10-29] MEDS: GABAPENTIN 100 MG CAP PO SCH ×3 (08:32→20:55)
[2020-10-29] MEDS: ENOXAPARIN 30 MG/0.3 ML SQ SCH (08:32)
[2020-10-29] MEDS: POTASSIUM CL SA 10 MEQ TAB PO SCH ×2 (08:32→20:54)
[2020-10-29] MEDS: TAMSULOSIN 0.4 MG SR CAP PO SCH (08:32)
--- NOTE | 2020-10-29 09:20 | ECHO ---
HEIGHT: 5 ft 0 in WEIGHT: 142 lb 4.8 oz DATE OF STUDY: 10/28/[address]: Mino Lugo MD 2-DIMENSIONAL: YES M.MODE: YES DOPPLER: YES COLOR FLOW: YES TDS: NO PORTABLE: NO DEFINITY: NO BUBBLE STUDY: NO DIAGNOSIS: CONGESTIVE HEART FAILURE CARDIAC HISTORY: CATHERIZATION: SURGERY: PROSTHETIC VALVE: PACEMAKER: MEASUREMENTS (cm) DIASTOLIC (NORMALS) SYSTOLIC (NORMALS) IVSd 1.1 (0.6-1.2) LA Diam 3.5 (1.9-4.0) LVEF 55-60% LVIDd 4.2 (3.5-5.7) LVIDs 2.6 (2.0-3.5) %FS 38% LVPWd 1.1 (0.6-1.2) Ao Diam 2.4 (2.0-3.7) 2 DIMENSIONAL ASSESSMENT: RIGHT ATRIUM: NORMAL LEFT ATRIUM: ENLARGED RIGHT VENTRICLE: NORMAL LEFT VENTRICLE: NORMAL TRICUSPID VALVE: NORMAL MITRAL VALVE: MITRAL ANNULAR CALCIFICATION PULMONIC VALVE: NORMAL AORTIC VALVE: NORMAL PERICARDIAL EFFUSION: NONE AORTIC ROOT: NORMAL LEFT VENTRICULAR WALL MOTION: NORMAL DOPPLER/COLOR FLOW: SEE BELOW COMMENTS: NORMAL LEFT VENTRICULAR EJECTION FRACTION 55-60% WITH NORMAL WALL MOTION. 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 MODERATE MITRAL REGURGITATION. MODERATE MITRAL ANNULAR CALCIFICATION. LEFT ATRIAL ENLARGEMENT. TECHNOLOGIST: Isaura VALENTINO
[2020-10-29] MEDS: lisinopriL 10 MG TAB PO SCH ×2 (10:08→20:56)
[2020-10-29] MEDS: FUROSEMIDE 20 MG/ 2ML VIAL IV SCH ×2 (10:08→17:27)
[2020-10-29] MEDS: hydroCHLOROthiazide 12.5 MG CAP PO SCH (10:08)
[2020-10-29] MEDS: ATORVASTATIN 20 MG TAB PO SCH (20:55)
[2020-10-29] MEDS: METOPROLOL XL 25 MG TAB PO SCH (20:55)
[2020-10-30] MEDS: PIPER/TAZO/NS 2.25gm 2.25 GM/50 ML BAG IVPB SCH ×2 (01:07→05:35)
[2020-10-30] MEDS: NITROGLYCERIN 1 GM PKT TD SCH ×2 (01:08→05:41)
[2020-10-30 04:13] LABS: Magnesium 1.8 mg/dL (1.8-2.4); Potassium 4.2 mmol/L (3.5-5.1)
[2020-10-30] MEDS ORDERED: MAGNESIUM SULFATE 1 gm IVPB 1 GM/100 ML BAG IV ONE (05:00)
[2020-10-30] MEDS: LEVOTHYROXINE SOD 0.05 MG TABLET PO SCH (05:45)
[2020-10-30] MEDS: INSULIN -REGULAR HUMAN 50 UNIT/0.5 ML ML SQ SCH (07:30)
[2020-10-30] MEDS: AZITHROMYCIN IV 250 MG in NA CHLORIDE 0.9% 250 ML IVPB SCH (08:03)
[2020-10-30] MEDS: TAMSULOSIN 0.4 MG SR CAP PO SCH (08:04)
[2020-10-30] MEDS: CLOPIDOGREL 75 MG TABLET PO SCH (08:04)
[2020-10-30] MEDS: ENOXAPARIN 30 MG/0.3 ML SQ SCH (08:04)
[2020-10-30] MEDS: ASPIRIN EC 81 MG TAB PO SCH (08:04)
[2020-10-30] MEDS: FUROSEMIDE 20 MG/ 2ML VIAL IV SCH (08:04)
[2020-10-30] MEDS: POTASSIUM CL SA 10 MEQ TAB PO SCH (08:04)
[2020-10-30] MEDS: GABAPENTIN 100 MG CAP PO SCH (08:04)
[2020-10-30] MEDS: lisinopriL 10 MG TAB PO SCH (08:05)
[2020-10-30] MEDS: hydroCHLOROthiazide 12.5 MG CAP PO SCH (08:05)
[2020-10-30 08:06] VITALS: BP 137/65
--- NOTE | 2020-10-30 08:12 | PN ---
Date of Progress Note: 10/29/2020 Subjective: The patient was seen this morning for followup. Overall, she feels better. Shortness o f breath is better. Reported that yesterday she ambulated well in the hallway. She was sitting toda y. Denied any new complaints. Objective: Vital Signs: Reviewed. HEENT: Unremarkable. Lungs: Bilateral good equal entry, presence of rales noted in bilateral lower lung field, mostly in the lower 1/3rd lung beard. Overall, this is significantly better compared to before. Not using an y accessory muscles of respiration. Cardiac: Heart sounds normal. Abdomen: Soft, bowel sounds normal. No guarding, rigidity, tenderness, or distention. Extremities: No leg edema. Laboratory Data: White count 4.4, hemoglobin 10.3, platelets 174. Urine culture growing E coli. So dium 143, potassium 3.8, chloride 106, bicarb 31, BUN 43, creatinine 1.63, glucose 142, magnesium 1.9 . Impression: 1.Congestive heart failure. 2.Urinary tract infection. 3.Hypertension. 4.Diabetes mellitus. 5.Anemia. Plan: We will go ahead and continue current Lasix. Monitor electrolyte. Continue current antibioti cs. I will see her tomorrow for followup. Echocardiogram results reviewed. Possible discharge to go home tomorrow depending on her condition. BRIGHT/MODL Voice ID: [id number] Report ID: [id number]
[2020-10-30 08:51] VITALS: TEMP 97.3
[2020-10-30 11:35] VITALS: O2SAT 90
--- NOTE | 2020-10-30 20:18 | DS ---
Date of Discharge: 10/30/2020 Disposition: Discharged to go home. Physical Examination: HEENT: Unremarkable. Lungs: Bilateral good equal air entry. Presence of basal rales in both lung beard, significantly b johana than what it was before. Not in any respiratory distress. Heart: Sounds normal. Abdomen: Soft. Bowel sounds normal. No guarding, rigidity, tenderness, or distention. Extremities: No leg edema. Discharge Medications And Instructions: 1.Continue all prior home medications except stop carvedilol. 2.Start metoprolol succinate 25 mg, take 1 tablet by mouth daily in morning. 3.Augmentin 500 mg 2 times a day with food for 5 days. 4.Furosemide 40 mg 2 times a day. 5.Follow up at my office next week on 11/05/2020 at 9 a.m. Laboratory Data: Urine culture grew E coli. Last chemistry yesterday, sodium 143, potassium 3.8, ch loride 106, bicarb 31, BUN 43, creatinine 1.63. Today, creatinine is 1.7. Her TSH was 3.2, done on 10/28/2020. Initial chemistry upon admission, sodium 139, potassium 3.8, chloride 106, bicarb 25, BU N 35, creatinine 1.25, glucose 134. Blood culture remains negative. Echocardiogram showed normal ej ection fraction and [id number] mitral stenosis with regurgitation. Hospital Course: This is an 89-year-old very pleasant female patient, came into emergency room with complaints of cough and shortness of breath. Please see dictated H and P for more information. Afte r the patient was evaluated in the emergency room, she was admitted to the hospital. I treated her f or congestive heart failure problem with IV Lasix and her home medications were continued. Echocardi ogram done showing normal ejection fraction. She received IV antibiotic, Zosyn, during this hospital ization and also received oxygen. This morning, her room air oxygen saturation was 91%. She is ambu lating very well. Overall, she has felt significantly better compared to the time of admission. The patient was discharged to go home in stable condition with above-mentioned medication instruction. Final Diagnoses: 1.Congestive heart failure, acute, diastolic. 2.Mitral stenosis with regurgitation. 3.Urinary tract infection. 4.Chronic kidney disease stage 3B. 5.Anemia due to chronic kidney disease. 6.Hypertension. 7.Hyperlipidemia. 8.Coronary artery disease. 9.Diabetes mellitus with chronic kidney disease. BRIGHT/MODL Voice ID: [id number] Report ID: [id number]
== END 2020-10-30 11:58 | disposition home or self-care (01) | DRG 291 ==
LOC: ER 11:20 → ERHOLD 15:45 → 4TH 16:39
PROVIDERS: ADMIT Internal Medicine; ATTEND Internal Medicine
DX: I13.0 Hypertensive heart and chronic kidney disease with heart failure and stage 1 through stage 4 chronic kidney disease, or unspecified chronic kidney disease (principal); I50.31 Acute diastolic (congestive) heart failure; N39.0 Urinary tract infection, site not specified; N18.32 Chronic kidney disease, stage 3b; E11.22 Type 2 diabetes mellitus with diabetic chronic kidney disease; E11.42 Type 2 diabetes mellitus with diabetic polyneuropathy; I25.10 Atherosclerotic heart disease of native coronary artery without angina pectoris; D63.1 Anemia in chronic kidney disease; E03.9 Hypothyroidism, unspecified; I05.2 Rheumatic mitral stenosis with insufficiency; M19.90 Unspecified osteoarthritis, unspecified site; B96.20 Unspecified Escherichia coli [E. coli] as the cause of diseases classified elsewhere; E78.5 Hyperlipidemia, unspecified; Z90.710 Acquired absence of both cervix and uterus; Z88.1 Allergy status to other antibiotic agents; Z79.82 Long term (current) use of aspirin; Z79.02 Long term (current) use of antithrombotics/antiplatelets; Z79.4 Long term (current) use of insulin; Z79.890 Hormone replacement therapy; Z79.899 Other long term (current) drug therapy; Z95.5 Presence of coronary angioplasty implant and graft; Z20.822 Contact with and (suspected) exposure to COVID-19
CPT/HCPCS: 0240U; 36415; 71045; 71046; 80048; 80053; 81003; 81015; 82947; 83605; 83735; 83880; 84145; 84443; 84484; 85025; 87040; 87077; 87086; 87088; 87186; 93306; 94640; 94760; 96361; 96365; 96375; 97116; 97161; 97530; 99285; J0456; J0696; J1650; J1940; J2405; J2543; J3475; J7040; J7050